=== PATIENT | female | born 1950 | race Caucasian/White ===

== ENCOUNTER → 2016-09-29 | Outpatient (CLI) | payer OTHER, MEDICARE ==
--- NOTE | 2016-09-29 10:48 | US ---
Ultrasound Pelvis Complete (Transabdominal and Endovaginal) Including Duplex/Doppler Imaging History: Postmenopausal bleeding. N95.0 Technique: Transabdominal and endovaginal ultrasound images were obtained. Endovaginal images obtain ed for better evaluation of the uterine myometrium and adnexa. Duplex/Doppler imaging of adnexa. Findings: Uterus measures 6 x 3 x 4 cm. Endometrium not visualized. Three heterogeneous uterine leio myoma noted. Anterior left mid body intramural 2.4 x 1.9 x 1.8 cm heterogeneous leiomyoma with a volu me of 4.1 mL. Posterior mid body subserosal heterogeneous leiomyoma measuring 2.9 x 2.5 x 2.4 cm with a volume of 8.9 mL. Left-sided mid body exophytic heterogeneous leiomyoma measuring 3.4 x 2.9 x 2.1 cm with a volume of 11.1 mL. Right ovary measures 2.4 x 1.7 x 0.9 cm. Left ovary measures 1.6 x 1.4 x 0.9 cm. No adnexal masses. No significant free fluid in the pelvis. Color Doppler flow to both ovaries without torsion. Impression: 1. Leiomyomatous uterus with three uterine leiomyomata measuring up to 3.4 mL. 2. Endometrium not well visualized possibly secondary to the heterogeneous leiomyomata. 3. No adnexal masses or ovarian torsion.
== END ==
LOC: FIMAGING 09:02
PROVIDERS: ATTEND Obstetrics & Gynecology Gynecology
DX: D25.9 Leiomyoma of uterus, unspecified (principal)

== ENCOUNTER → 2016-10-25 | Outpatient (CLI) | payer OTHER, MEDICARE | LOC: FIMAGING 10:26 | DX: Z12.31 Encounter for screening mammogram for malignant neoplasm of breast (principal); Z85.3 Personal history of malignant neoplasm of breast; Z80.3 Family history of malignant neoplasm of breast | CPT/HCPCS: G0202-52 ==

== ENCOUNTER 2017-06-16 12:08 | Outpatient (CLI) | payer OTHER, MEDICARE ==
[2017-06-16] MEDS ORDERED: fentaNYL 100 MCG/2 ML INJ ONE (12:21)
[2017-06-16] MEDS ORDERED: MIDAZOLAM 2 MG/2 ML VIAL ONE (12:21)
[2017-06-16] MEDS ORDERED: GADOBUTROL 10 ML VIAL IVP ONE (13:37)
[2017-06-16] MEDS ORDERED: ACETAMINOPHEN 325 MG TAB PO PRN (16:16)
[2017-06-16] MEDS ORDERED: ONDANSETRON 4 MG/2 ML VIAL IVP PRN (16:17)
== END 2017-06-16 16:25 | disposition home or self-care (01) ==
LOC: FIMAGING 12:08
PROVIDERS: ATTEND Plastic Surgery
DX: Z12.39 Encounter for other screening for malignant neoplasm of breast (principal); N64.4 Mastodynia; Z85.3 Personal history of malignant neoplasm of breast; Z90.11 Acquired absence of right breast and nipple
CPT/HCPCS: 0159T; 99152; 99153; A9585; C8908; J2250; J3010

== ENCOUNTER → 2018-09-11 | Outpatient (CLI) | payer OTHER, MEDICARE | LOC: FIMAGING 13:27 | PROVIDERS: ATTEND Internal Medicine Hematology & Oncology | DX: Z12.31 Encounter for screening mammogram for malignant neoplasm of breast (principal); Z85.3 Personal history of malignant neoplasm of breast; Z90.10 Acquired absence of unspecified breast and nipple ==